=== PATIENT | male | born 1955 | race Caucasian/White ===

== ENCOUNTER → 2019-02-24 | Outpatient (CLI) | payer BC | END | disposition home or self-care (01) | LOC: CVU 06:22 | PROVIDERS: ATTEND Internal Medicine Cardiovascular Disease | DX: I48.0 Paroxysmal atrial fibrillation (principal); I10 Essential (primary) hypertension; R55 Syncope and collapse | CPT/HCPCS: 93306 ==

== ENCOUNTER 2019-05-18 10:34 | Observation (INO) | payer BC, OTHER ==
[~2019-05-18] VITALS: Ht 177.8 cm; Wt 105.9 kg
[2019-05-18] MEDS: ASPIRIN 81 MG TABLET CHEW PO ONE ×2 (11:00→12:36)
[2019-05-18] MEDS ORDERED: SODIUM CHLORIDE FLUSH 10ML SYR IVF ONE (11:00)
[2019-05-18] MEDS ORDERED: DILTIAZEM 5 MG/ML, 5ML IVPush STA (11:00)
[2019-05-18] MEDS ORDERED: DILTIAZEM 5 MG/ML, 5ML ONE (11:07)
--- NOTE | 2019-05-18 11:18 | NUR ---
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 PT ON MONITOR , MD ROMAN AND MEDICATED NOTED ON MAY.
--- NOTE | 2019-05-18 11:20 | NUR ---
REPEAT EKG COMPLETED AND MD AT BEDSIDE.
[2019-05-18 11:33] LABS: BASOPHILS # (AUTO) 0.05 x10^3/uL (0-0.1); BASOPHILS % (AUTO) 1 % (0-1); EOSINOPHILS # (AUTO) 0.38 x10^3/uL (0-0.4); EOSINOPHILS % (AUTO) 5 % (1-7); LYMPHOCYTES % (AUTO) 18 % (22-44); MD NO; MEAN CORPUSCULAR HEMOGLOBIN 32.1 pg (27.5-34.5); MEAN CORPUSCULAR VOLUME 94.4 fL (81-97); MEAN PLATELET VOLUME 8.8 fL (7.4-10.4); MONOCYTES # (AUTO) 0.63 x10^3/uL (0.2-0.8); MONOCYTES % (AUTO) 7 % (2-9); NEUTROPHILS # (AUTO) 5.86 x10^3/uL (1.8-6.8); NEUTROPHILS % (AUTO) 70 % (42-75); PLATELET COUNT 275 x10^3/uL (130-400); RED BLOOD COUNT 4.79 x10^6/uL (4.38-5.82); RED CELL DISTRIBUTION WIDTH 12.9 % (9.4-14.8)
[2019-05-18 11:43] LABS: ANION GAP 7 mmol/L (5-15); CALCIUM 8.8 mg/dL (8.5-10.1); CHLORIDE 108 mmol/L (98-107)
[2019-05-18 11:50] LABS: ALANINE AMINOTRANSFERASE 83 U/L (12-78); ALKALINE PHOSPHATASE 64 U/L (45-117); BILIRUBIN,TOTAL 0.4 mg/dL (0.2-1.0); CREATININE 1.11 mg/dL (0.7-1.3); T4 (THYROXINE) 11.5 mcg/dL (4.5-12.1); TOTAL PROTEIN 7.7 g/dL (6.4-8.2); TROPONIN I < 0.015 ng/mL (0.000-0.045)
--- NOTE | 2019-05-18 11:55 | NUR ---
PT SITTING IN BED CONVERSING WITH AT BEDSIDE, RESPIRATOINS EVEN AND UNLABORED.
[2019-05-18] MEDS ORDERED: NITROGLYCERIN 0.4 MG BOTTLE (25 TABS) SL PRN (12:30)
[2019-05-18] MEDS ORDERED: ACETAMINOPHEN 325 MG TABLET PO PRN (12:30)
[2019-05-18] MEDS ORDERED: morphine SULFATE 10 MG/ML, 1ML IV PRN (12:30)
[2019-05-18] MEDS ORDERED: NITROGLYCERIN 0.4 MG/SPRAY SL PRN (12:30)
[2019-05-18] MEDS ORDERED: morphine SULFATE 10 MG/ML, 1ML IVPush PRN (12:30)
[2019-05-18] MEDS ORDERED: ASPIRIN 81 MG TABLET CHEW ONE ×2 (12:32→12:33)
--- NOTE | 2019-05-18 12:38 | NUR ---
GRADE RECORDER AT BEDSIDE, PT CONVERSING, NO SIGNS OF DISTRESS.
--- NOTE | 2019-05-18 12:40 | NUR ---
HVAC TECHNICIAN RESIDENTIAL AT BEDSIDE UPDATING PT ON POC. PT SITTING IN BED, NO SIGNS OF DISTRESS. HAD ORDERED ASPIRIN TO GIVE TO PT, HVAC TECHNICIAN RESIDENTIAL VERBALIZED IT WAS UNNEED PT IS ON ELIQUIS.
--- NOTE | 2019-05-18 13:57 | NUR ---
REPORT GIVEN TO JOEL CAMILO.
[2019-05-18 14:24] VITALS: BP 113/60
[2019-05-18] MEDS ORDERED: APIX5TAB PO (14:50)
[2019-05-18] MEDS ORDERED: DILT180C76 PO (14:50)
[2019-05-18] MEDS ORDERED: ATOR10TA9 PO (14:50)
[2019-05-18] MEDS ORDERED: [UNRECOGNIZED DRUG - CODE] PO (14:50)
[2019-05-18] MEDS ORDERED: FLEC100T PO (14:50)
[2019-05-18] MEDS ORDERED: ALBU18HF INH (18:15)
[2019-05-18] MEDS ORDERED: BUDE10.2 INH (18:15)
[2019-05-18] MEDS ORDERED: DIPHENHYDRAMINE 25 MG CAPSULE PO PRN (18:30)
[2019-05-18] MEDS ORDERED: ALBUTEROL SULFATE 2.5 MG/3 ML ONE (18:33)
[2019-05-18] MEDS ORDERED: FLECAINIDE 100MG TABLET PO SCH (20:00)
[2019-05-18] MEDS: APIXABAN 5 MG TABLET PO SCH (20:16)
[2019-05-18] MEDS: FLECAINIDE 50MG TABLET PO SCH (20:16)
[2019-05-18 20:20] VITALS: BP 124/71
[2019-05-18] MEDS: SODIUM CHLORIDE FLUSH 10ML SYR IVF SCH (20:20)
[2019-05-18] MEDS ORDERED: ATORVASTATIN 10 MG TABLET PO SCH (21:00)
[2019-05-19 02:36] VITALS: BP 115/72
[2019-05-19 06:53] LABS: TROPONIN I < 0.015 ng/mL (0.000-0.045)
[2019-05-19 07:29] VITALS: BP 122/76
[2019-05-19] MEDS ORDERED: REGADENOSON 0.4 MG/5 ML SYRINGE ONE (08:25)
[2019-05-19] MEDS: FLECAINIDE 50MG TABLET PO SCH (08:43)
[2019-05-19] MEDS: APIXABAN 5 MG TABLET PO SCH (08:44)
[2019-05-19] MEDS: SODIUM CHLORIDE FLUSH 10ML SYR IVF SCH (08:44)
[2019-05-19] MEDS ORDERED: DILTIAZEM CD 180 MG CAP.ER.24H PO SCH (09:00)
[2019-05-19] MEDS ORDERED: ALBUTEROL SULFATE 2.5 MG/3 ML ONE (10:39)
[2019-05-19] MEDS ORDERED: ALBUTEROL SULFATE 2.5 MG/3 ML NPPB PRN (11:00)
[2019-05-19 13:54] LABS: TROPONIN I < 0.015 ng/mL (0.000-0.045)
[2019-05-19 13:59] VITALS: BP 148/87
[2019-05-19] MEDS ORDERED: FLEC50TA25 PO (16:34)
[2019-05-19] MEDS ORDERED: OLME40TA22 PO (16:37)
== END 2019-05-19 17:47 | disposition home or self-care (01) ==
LOC: SUATTDRO 12:08 → ED 13:37 → EDIP 14:16 → 5SO 14:17
PROVIDERS: ADMIT Hospitalist; ATTEND Hospitalist
DX: I48.20 Chronic atrial fibrillation, unspecified (principal); I48.0 Paroxysmal atrial fibrillation; R00.0 Tachycardia, unspecified; D68.69 Other thrombophilia; G47.33 Obstructive sleep apnea (adult) (pediatric); I10 Essential (primary) hypertension; J45.909 Unspecified asthma, uncomplicated; E78.5 Hyperlipidemia, unspecified; E66.9 Obesity, unspecified; R06.02 Shortness of breath; R06.00 Dyspnea, unspecified; Z87.891 Personal history of nicotine dependence; Z96.652 Presence of left artificial knee joint; Z79.899 Other long term (current) drug therapy
CPT/HCPCS: 36415; 71045; 78452; 80053; 83735; 84436; 84443; 84484; 85025; 93005; 93017; 96374; 99291; A9502; C9898; G0378; J2785; Q0163

== ENCOUNTER → 2019-09-01 | Outpatient (CLI) | payer OTHER ==
[~2019-09-01] MED LIST: ALBU18HF INH; APIX5TAB PO; ATOR10TA9 PO; BUDE10.2 INH; DILT180C76 PO; FLEC100T PO; FLEC50TA25 PO; OLME40TA22 PO; OMNIPAQUE 350 MG/ML, 150 ML BOTTLE ONE; [UNRECOGNIZED DRUG - CODE] PO
== END | disposition home or self-care (01) ==
LOC: CFH 12:16
PROVIDERS: ATTEND Internal Medicine Cardiovascular Disease
DX: Z01.818 Encounter for other preprocedural examination (principal); I48.0 Paroxysmal atrial fibrillation
CPT/HCPCS: 71046; 75572; 82565; Q9967

== ENCOUNTER 2019-09-04 06:07 | Inpatient (IN) | payer OTHER ==
[~2019-09-04] VITALS: Ht 177.8 cm; Wt 107.3 kg
[~2019-09-04 06:07] MED LIST changes: -OMNIPAQUE 350 MG/ML, 150 ML BOTTLE ONE
[2019-09-04 06:38] VITALS: BP 128/68
[2019-09-04] MEDS ORDERED: OLME40TA12 PO (06:50)
[2019-09-04] MEDS ORDERED: SODIUM CHLORIDE 0.9% 1,000 ML IV SCH (06:51)
[2019-09-04] MEDS ORDERED: SODIUM CHLORIDE 0.9% 1,000 ML IV ONE (07:00)
[2019-09-04 07:10] LABS: BASOPHILS # (AUTO) 0.03 x10^3/uL (0-0.1); BASOPHILS % (AUTO) 1 % (0-1); EOSINOPHILS # (AUTO) 0.42 x10^3/uL (0-0.4); EOSINOPHILS % (AUTO) 7 % (1-7); LYMPHOCYTES # (AUTO) 1.65 x10^3/uL (1-3.4); LYMPHOCYTES % (AUTO) 29 % (22-44); MD NO; MEAN CORPUSCULAR HEMOGLOBIN 31.9 pg (27.5-34.5); MEAN CORPUSCULAR HGB CONC 34.2 g/dL (33.2-36.2); MEAN CORPUSCULAR VOLUME 93.2 fL (81-97); MEAN PLATELET VOLUME 9.4 fL (7.4-10.4); MONOCYTES # (AUTO) 0.49 x10^3/uL (0.2-0.8); MONOCYTES % (AUTO) 8 % (2-9); NEUTROPHILS # (AUTO) 3.17 x10^3/uL (1.8-6.8); NEUTROPHILS % (AUTO) 55 % (42-75); PLATELET COUNT 201 x10^3/uL (130-400); RED BLOOD COUNT 4.81 x10^6/uL (4.38-5.82)
[2019-09-04 07:20] LABS: ANION GAP 6 mmol/L (5-15); CALCIUM 9.1 mg/dL (8.5-10.1); CHLORIDE 110 mmol/L (98-107); CREATININE 1.24 mg/dL (0.7-1.3)
[2019-09-04] MEDS ORDERED: LIDOCAINE 2%, 20ML ONE (07:48)
[2019-09-04] MEDS ORDERED: MIDAZOLAM 1 MG/ML, 2ML ONE (08:02)
[2019-09-04] MEDS ORDERED: FENTANYL PF 100 MCG/2ML ONE ×2 (08:02→09:43)
[2019-09-04] MEDS ORDERED: ROCURONIUM 10MG/ML,5ML ONE ×3 (08:11→09:13)
[2019-09-04] MEDS ORDERED: APIXABAN 5 MG TABLET ONE (08:12)
[2019-09-04] MEDS ORDERED: SUGAMMADEX 200 MG/2 ML IVPush ONE (08:43)
[2019-09-04] MEDS ORDERED: HEPARIN 1,000 UNITS/ML, 10ML ONE ×3 (08:43→09:44)
[2019-09-04] MEDS ORDERED: DEXAMETHASONE 4 MG/ML, 1ML ONE (08:43)
[2019-09-04] MEDS ORDERED: ONDANSETRON 2MG/ML, 2ML ONE (08:43)
[2019-09-04] MEDS ORDERED: SUCCINYLCHOLINE 20 MG/ML, 10ML ONE (08:43)
[2019-09-04] MEDS ORDERED: PROPOFOL 10 MG/ML, 20ML ONE (08:43)
[2019-09-04] MEDS ORDERED: PHENYLEPHRINE 10 MG/ML ONE ×2 (11:05)
[2019-09-04] MEDS ORDERED: ACETAMINOPHEN 325 MG TABLET PO PRN (12:00)
[2019-09-04] MEDS ORDERED: APIXABAN 5 MG TABLET PO SCH (12:00)
[2019-09-04] MEDS ORDERED: ALBUTEROL SULFATE 2.5 MG/3 ML NPPB PRN (14:00)
[2019-09-04] MEDS ORDERED: ALBUTEROL SULFATE 2.5 MG/3 ML NPPB SCH (14:00)
[2019-09-04 14:19] VITALS: BP 103/68
[2019-09-04] MEDS: FLECAINIDE 50MG TABLET PO SCH (14:26)
[2019-09-04] MEDS: ALBUTEROL SULFATE 2.5 MG/3 ML NPPB SCH ×2 (14:40→21:00)
[2019-09-04] MEDS: APIXABAN 5 MG TABLET PO SCH (20:18)
[2019-09-04] MEDS: COLCHICINE 0.6 MG CAPSULE PO SCH (20:18)
[2019-09-04 20:45] VITALS: BP 125/79
[2019-09-04] MEDS ORDERED: APIXABAN 5 MG TABLET PO ONE (21:00)
[2019-09-04] MEDS: BUDESONIDE 0.5 MG/2 ML INHA NPPB SCH (21:00)
[2019-09-05 00:04] VITALS: BP 117/74
[2019-09-05] MEDS: FLECAINIDE 50MG TABLET PO SCH (01:35)
[2019-09-05] MEDS: ALBUTEROL SULFATE 2.5 MG/3 ML NPPB SCH ×2 (03:00→07:08)
[2019-09-05] MEDS: BUDESONIDE 0.5 MG/2 ML INHA NPPB SCH (07:09)
[2019-09-05 07:24] VITALS: BP 132/81
[2019-09-05] MEDS ORDERED: ATORVASTATIN 10 MG TABLET PO SCH (07:30)
[2019-09-05] MEDS ORDERED: DILTIAZEM CD 180 MG CAP.ER.24H PO SCH (09:00)
[2019-09-05] MEDS ORDERED: LOSARTAN 100 MG TAB PO SCH (09:00)
[2019-09-05] MEDS: APIXABAN 5 MG TABLET PO SCH (09:17)
[2019-09-05] MEDS: COLCHICINE 0.6 MG CAPSULE PO SCH (09:17)
[2019-09-05] MEDS ORDERED: COLC0.6C3 PO (09:45)
== END 2019-09-05 11:11 | disposition home or self-care (01) | DRG 274 ==
LOC: CACL 06:07 → ORIP 11:52 → 5SO 13:17 → DCLOUNGE 09-05 11:04
PROVIDERS: ADMIT Internal Medicine Cardiovascular Disease; ATTEND Internal Medicine Cardiovascular Disease
PROC: B246ZZZ Ultrasonography of Right and Left Heart (ICD-10-PCS; 2019-09-04)
PROC: 02583ZZ Destruction of Conduction Mechanism, Percutaneous Approach (ICD-10-PCS; principal; 2019-09-05)
PROC: 4A023FZ Measurement of Cardiac Rhythm, Percutaneous Approach (ICD-10-PCS; 2019-09-05)
PROC: 4A0234Z Measurement of Cardiac Electrical Activity, Percutaneous Approach (ICD-10-PCS; 2019-09-05)
PROC: 02K83ZZ Map Conduction Mechanism, Percutaneous Approach (ICD-10-PCS; 2019-09-05)
DX: I48.0 Paroxysmal atrial fibrillation (principal); D68.69 Other thrombophilia; G47.30 Sleep apnea, unspecified; I48.92 Unspecified atrial flutter; E66.9 Obesity, unspecified; E78.5 Hyperlipidemia, unspecified; G47.33 Obstructive sleep apnea (adult) (pediatric); I10 Essential (primary) hypertension; Z79.01 Long term (current) use of anticoagulants; Z68.33 Body mass index [BMI] 33.0-33.9, adult; Z01.84 Encounter for antibody response examination
CPT/HCPCS: 36415; 93613; 93655; 93656; 93662; J3490; 80048; 85025; 85347; 93306; 93312; 93321; 93325; 93356; C1732; C1766; C1769; C1893; C1894; G0378; J1100; J1644; J2250; J2405; J2704; J3010; C1730; C1759; J0330; J2370; U0001-CS